=== PATIENT | female | born 2000 | race Caucasian/White ===

== ENCOUNTER 2025-04-05 13:45 | Emergency (ER) | payer OTHER, SELFPAY ==
--- NOTE | 2025-04-05 13:54 | ED_ITS ---
HPI - Female Genitourinary General Chief complaint: Urogenital-Female Stated complaint: Uti Symptoms Time Seen by Provider: 04/05/25 14:00 Source: patient Mode of arrival: ambulatory Limitations: no limitations History of Present Illness HPI Narrative: Annita is a 24-year-old female patient presenting to the clinic today with complaints of possible UTI. She reports she has had symptoms for 3 days. Has not taken any medications for her symptoms. Is complaining of burning, frequency, and urgency with urination. She denies any vaginal discharge. Just finished her menstrual period. No concern for . Denies any concerns for STIs but would like to be tested. Related Data Allergies Allergy/AdvReac Type Severity Reaction Status Date / Time Cat Dander AdvReac Mild Rash Uncoded 04/05/25 14:08 Review of Systems Review of Systems: Pertinent positives per HPI. Patient denies any fever, chills, rash, headache, visual changes, dizziness, cough, runny nose, sore throat, shortness of breath, chest pain, palpitations, nausea, vomiting, diarrhea, constipation, PMFSH Comments At the time of my signature, I reviewed and agree with the nursing past medical, surgical, social, and family history. There is no relevant family history pertinent to the patient complaint. Exam Narrative: General: Well-developed, well nourished, in no apparent distress. Head: Normocephalic, atraumatic. Cardio: Regular rate and rhythm, s1 and s2 normal, no murmur appreciated. Resp: Clear to auscultation bilaterally, no rhonchi, rales, wheezing or rubs. Abdomen: Soft, pliable, bowel sounds present in all quadrants, suprapubic tender to palpation, no organomegly, no CVAT tenderness. Course Course Emergency Course: Portions of this record may have been created with voice recognition software. Level of Care: Express Care Visit Vital Signs Vital signs: Vital Signs Temperature 36.6 C 04/05/25 13:55 Pulse Rate 87 04/05/25 13:55 Respiratory Rate 16 04/05/25 13:55 Blood Pressure 127/93 H 04/05/25 13:55 Pulse Oximetry 100 04/05/25 13:55 Temperature 36.6 C 04/05/25 13:55 Pulse Rate 87 04/05/25 13:55 Respiratory Rate 16 04/05/25 13:55 Blood Pressure 127/93 H 04/05/25 13:55 Pulse Oximetry 100 04/05/25 13:55 Vital signs reviewed MDM - Female Genitourinary MDM Narrative Medical decision making narrative: At the time of visit patient is resting comfortably on the exam table. Patient appears to be nontoxic. Complaints of possible UTI. She reports she has had symptoms for 3 days. Has not taken any medications for her symptoms. Is complaining of burning, frequency, and urgency with urination. She denies any vaginal discharge. Just finished her menstrual period. No concern for . Denies any concern for STIs but would like to be tested. On exam patient has soft, pliable, nondistended abdomen, mild tenderness to palpation over the suprapubic area, no CVAT tenderness. Labs: Urinalysis positive for leukocytes, blood, and protein. We will send urine for culture. Testing for chlamydia, gonorrhea, and Trichomonas was sent to the lab. Plan: I suspect patient has acute UTI. Prescription for Macrobid was sent to the pharmacy. Will send off a dirty urine for chlamydia, gonorrhea, and Trichomonas testing. Treatment will depend on results. Supportive measures were discussed with the patient and they voiced understanding discharge instructions and agrees to treatment plan. Return precautions reviewed Differential Diagnosis Differential diagnosis: Likely urinary tract infection and cystitis Discharge Plan Discharge Clinical Impression: Encounter for assessment of sexually transmitted infection exposure Urinary tract infection Qualifiers: Urinary tract infection type: acute cystitis Hematuria presence: with hematuria Qualified Code(s): N30.01 - Acute cystitis with hematuria Patient Disposition: Home Condition: Stable Instructions: Antibiotic Form, Safe Sex Practices (ED), Urinary Tract Infection in Women (ED) Additional Instructions: Take Macrobid as prescribed Testing was sent via urine for chlamydia, gonorrhea, and Trichomonas-avoid any sexual intercourse until you get these results back and complete any recommended treatment. Increase fluids and stay well hydrated Wipe front to back. May use wet wipes. Avoid tub baths If sexually active- pee before and after intercourse. Wear cotton panties Avoid tight clothing up against the genitals Follow up with your PCP in 1 week if symptoms persist. Patient Language: [place] Prescriptions: New nitrofurantoin monohyd/m-cryst [Macrobid] 100 mg capsule 100 mg PO Q12H 5 Days Qty: 10 0RF Rx Instructions: must administer with a meal/food Follow-up/Referrals: PHYSICIAN,SERVICE ORDER CLERK [Primary Care Provider, Internal Medicine] Time of Disposition: 14:02 Quality NIHSS Nursing Documentation ED NIHSS nursing documentation: reviewed/agree
[2025-04-05 13:55] VITALS: BP 127/93; PULSE 87; RESP 16; TEMP 36.6; O2SAT 100
[2025-04-05 14:06] LABS: EDUAAPPEAR Cloudy; EDUABILI Negative (Negative); EDUABLOOD 1+ (Negative); EDUACOLOR1 Yellow; EDUAGLUCOSE Negative (Negative); EDUAKETONE Negative (Negative); EDUALEUKO 2+ (Negative); EDUANITRATE Negative (Negative); EDUAPH 7.0; EDUAPROTEIN Trace (Negative); EDUASPGRAVITY 1.020; EDUAUROBILI 0.2
[2025-04-05 19:01] LABS: Trichomonas Vag PCR NOT DETECTED (NOT DETECTE)
== END 2025-04-05 14:10 | disposition home or self-care (01) ==
PROVIDERS: Emergency Provider Nurse Practitioner Family
DX: N30.01 Acute cystitis with hematuria (principal); Z11.3 Encounter for screening for infections with a predominantly sexual mode of transmission
CPT/HCPCS: 81003; 87086; 87186; 87491; 87591; 87661; 99203; G0463